=== PATIENT | male | born 1995 | race African-American/Black ===

== ENCOUNTER 2017-05-01 00:15 | Emergency (ER) | payer OTHER ==
[~2017-05-01] VITALS: Ht 188 cm; Wt 65.8 kg
[2017-05-01 00:20] VITALS: BP 121/67
[2017-05-01] MEDS ORDERED: HYDROcodone-ACET 5/325MG TAB PO ONE (03:00)
[2017-05-01] MEDS ORDERED: PENICILLIN G BENZ 1200000 UNITS/2 ML SYRG IM ONE (03:00)
[2017-05-01] MEDS ORDERED: methylPREDNISolone SOD SUCC 125 MG/2 ML VL IM ONE (03:00)
== END 2017-05-01 03:31 | disposition home or self-care (01) ==
LOC: ER 00:15
DX: J03.90 Acute tonsillitis, unspecified (principal); J35.1 Hypertrophy of tonsils; F17.210 Nicotine dependence, cigarettes, uncomplicated
CPT/HCPCS: 96372; 99284; J0561; J2930

== ENCOUNTER 2017-09-27 14:11 | Emergency (ER) | payer OTHER ==
[~2017-09-27] VITALS: Ht 185.4 cm; Wt 68.0 kg
[2017-09-27 14:28] VITALS: BP 106/75
[2017-09-27] MEDS ORDERED: cefTRIAXone SOD 1,000 MG VL IM ONE (16:00)
== END 2017-09-27 16:15 | disposition home or self-care (01) ==
LOC: ER 14:26
DX: J03.90 Acute tonsillitis, unspecified (principal); F17.210 Nicotine dependence, cigarettes, uncomplicated
CPT/HCPCS: 96372; 99283; J0696

== ENCOUNTER 2017-12-31 10:31 | Emergency (ER) | payer OTHER ==
[~2017-12-31] VITALS: Ht 188 cm; Wt 64.9 kg
[2017-12-31 10:57] VITALS: BP 123/70
== END 2017-12-31 13:56 | disposition home or self-care (01) ==
LOC: ER 10:31
DX: J03.90 Acute tonsillitis, unspecified (principal); F17.210 Nicotine dependence, cigarettes, uncomplicated